=== PATIENT | female | born 1995 | race Caucasian/White ===

== ENCOUNTER 2018-12-16 06:27 | Emergency (ER) | payer SELFPAY ==
--- NOTE | 2018-12-16 06:52 | EDM.PDOC ---
ED HPI GENERAL MEDICAL PROBLEM - General Chief Complaint: Abdominal Pain Stated Complaint: STOMACH PAIN Time Seen by Provider: 12/16/18 06:48 Source of Information: Reports: Patient History Limitations: Reports: No Limitations - History of Present Illness INITIAL COMMENTS - FREE TEXT/NARRATIVE: 23-year-old female who reports yesterday morning developed a "stomach ache". The pain was just a general upper abdominal "pain" that she found hard to describe but was minor and she was reports that she was able to eat and drink. It continued constant throughout the day with no waxing or waning but and a low- grade level. At approximately 4 AM she awoke with severe pain in her upper abdomen that was associated with vomiting. She has had vomiting 7 since then. She has tried to take liquids but has vomiting following this. Some of her initial emesis was bilious but the latter has been after she's tried to drink liquids. She's had diarrhea 1. No blood in her stool. She reports the pain as a sharp pain. It does not radiate. He rates the pain as a 10/10. No fevers. But she has had chills. No dysuria. Last normal menstrual period was 2 weeks ago. She denies any episodes of pain similar to this in the past. There are no other associated signs or symptoms. There are no other modifying factors. Onset: Other (Yesterday morning but acute worsening at 4 AM today.) Duration: Getting Worse Location: Reports: Abdomen Quality: Reports: Sharp Severity: Severe Improves with: Reports: None Worsens with: Reports: Other (Palpation) Context: Reports: Other (As above) Associated Symptoms: Reports: Nausea/Vomiting Treatments [employer]AY [employer]IN [employer]IVER: Reports: Other (see below) (Nothing) abdominal Pain Score (Numeric/FACES): 10 - Related Data Allergies Allergy/AdvReac Type Severity Reaction Status Date / Time No Known Allergies Allergy Verified 12/16/18 06:45 Home Meds: Home Meds Omeprazole 40 mg PO ACBREAKFAST #30 cap.sr 12/16/18 [Rx] Promethazine [Phenergan] 25 mg PO Q6H PRN #12 tab 12/16/18 [Rx] Past Medical History HEENT History: Reports: Allergic Rhinitis - Past Surgical History Other Surgical History Comment: No previous surgeries. Social & Family History - Tobacco Use Smoking Status *Q: Former Smoker (Quit smoking one month ago) - Alcohol Use Alcohol Use History: Yes Alcohol Use Frequency: Rarely - Recreational Drug Use Recreational Drug Type: Reports: Marijuana/Hashish Recreational Drug Use Frequency: Rarely - Living Situation & Occupation Living situation: Reports: Single Occupation: Employed (As a field appraiser) ED ROS GENERAL - Review of Systems Review Of Systems: See Below Constitutional: Reports: Chills HEENT: Reports: No Symptoms Respiratory: Reports: Cough (Cough for about the past month. Nonproductive.) Cardiovascular: Reports: No Symptoms Endocrine: Reports: No Symptoms GI/Abdominal: Reports: Abdominal Pain, Diarrhea, Nausea, Vomiting : Reports: No Symptoms Musculoskeletal: Reports: No Symptoms Skin: Reports: No Symptoms Neurological: Reports: No Symptoms Hematologic/Lymphatic: Reports: No Symptoms Immunologic: Reports: No Symptoms ED EXAM, GI/ABD - Physical Exam Exam: See Below Exam Limited By: No Limitations General Appearance: Alert, WD/WN, Moderate Distress Eyes: Bilateral: Normal Appearance, EOMI Ears: Normal External Exam, Hearing Grossly Normal Nose: Normal Inspection, Normal Mucosa, No Blood Throat/Mouth: Normal Voice, No Airway Compromise, Other (Dry mucous membranes) Head: Atraumatic, Normocephalic Neck: Normal Inspection, Supple, Non-Tender, Full Range of Motion Respiratory/Chest: No Respiratory Distress, Lungs Clear, Normal Breath Sounds, No Accessory Muscle Use, Chest Non-Tender Cardiovascular: Normal Peripheral Pulses, Regular Rate, Rhythm, No Murmur GI/Abdominal Exam: Normal Bowel Sounds, Soft, No Mass, Tender (And upper abdomen , more on the right upper quadrant) Back Exam: Normal Inspection, Full Range of Motion. No: CVA Tenderness (R), CVA Tenderness (L) Extremities: Normal Inspection, Normal Range of Motion, Non-Tender, No Pedal Edema, Normal Capillary Refill Neurological: Alert, Oriented, CN II-XII Intact, Normal Cognition, No Motor/ Sensory Deficits Skin Exam: Warm, Dry, Intact, Normal Color, No Rash Course - Vital Signs Last Recorded V/S: Last Vital Signs Temp 36.0 C 12/16/18 08:44 Pulse 87 12/16/18 08:44 Resp 15 12/16/18 08:44 BP 110/77 12/16/18 08:44 Pulse Ox 100 12/16/18 08:44 - Orders/Labs/Meds Orders: Active Orders 24 hr Category Date Time Status Abdomen Comp [US] Stat Exams 12/16/18 08:28 Ordered Pantoprazole [ProTONIX IV] Med 12/16/18 09:39 Once 40 mg IVPUSH ONETIME ONE Sodium Chloride 0.9% [Normal Saline] 1,000 ml Med 12/16/18 08:45 Active IV ASDIRECTED Sodium Chloride 0.9% [Saline Flush] Med 12/16/18 07:00 Active 10 ml FLUSH ASDIRECTED PRN Peripheral IV Insertion Adult [OM.PC] Routine Oth 12/16/18 07:00 Ordered Medication Orders Sodium Chloride (Normal Saline) 1,000 mls @ 150 mls/hr IV ASDIRECTED FRANSISCA Last Admin: 12/16/18 08:56 Dose: 150 mls/hr Pantoprazole Sodium (Protonix Iv) 40 mg IVPUSH ONETIME ONE Stop: 12/16/18 09:40 Sodium Chloride (Saline Flush) 10 ml FLUSH ASDIRECTED PRN PRN Reason: Keep Vein Open Last Admin: 12/16/18 07:13 Dose: 10 ml Labs: Laboratory Tests 12/16/18 12/16/18 12/16/18 Range/Units 07:20 07:20 07:20 WBC 11.8 (4.5-12.0) X10-3/uL RBC 4.62 (3.23-5.20) x10(6)uL Hgb 13.7 (11.5-15.5) g/dL Hct 40.1 (30.0-51.3) % MCV 86.7 (80-96) fL MCH 29.5 (27.7-33.6) pg MCHC 34.1 (32.2-35.4) g/dL RDW 13.2 (11.5-15.5) % Plt Count 319 (125-369) X10(3)uL MPV 7.6 (7.4-10.4) fL Neut % (Auto) 75.6 (46-82) % Lymph % (Auto) 19.4 (13-37) % [place] % (Auto) 4.1 (4-12) % Eos % (Auto) 0 L (1.0-5.0) % Baso % (Auto) 1 (0-2) % Neut # (Auto) 8.9 H (1.6-8.3) # Lymph # (Auto) 2.3 (0.6-5.0) # Chester # (Auto) 0.5 (0.0-1.3) # Eos # (Auto) 0.0 (0.0-0.8) # Baso # (Auto) 0.1 (0.0-0.2) # Sodium 140 (135-145) mmol/L Potassium 3.7 (3.5-5.3) mmol/L Chloride 101 (100-110) mmol/L Carbon Dioxide 26 (21-32) mmol/L BUN 15 (7-18) mg/dL Creatinine 0.8 (0.55-1.02) mg/dL Est Cr Clr Drug Dosing 89.70 mL/min Estimated GFR (MDRD) > 60 (>60) BUN/Creatinine Ratio 18.8 (9-20) Glucose 128 H (80-116) mg/dL Calcium 9.7 (8.6-10.2) mg/dL Total Bilirubin 0.3 (0.1-1.3) mg/dL AST 16 (5-25) IU/L ALT 19 (12-36) U/L Alkaline Phosphatase 79 (56-112) IU/L C-Reactive Protein < 0.2 L (0.5-0.9) mg/dL Total Protein 9.0 H (6.0-8.0) g/dL Albumin 4.3 (3.5-5.2) g/dL Globulin 4.7 g/dL Albumin/Globulin Ratio 0.9 Amylase 87 (25-115) U/L Urine Color (YELLOW) Urine Appearance (CLEAR) Urine pH (5.0-6.5) Ur Specific [place] (1.010-1.025) Urine Protein (NEGATIVE) mg/dL Urine Glucose (UA) (NORMAL) mg/dL Urine Ketones (NEGATIVE) mg/dL Urine Occult Blood (NEGATIVE) Urine Nitrite (NEGATIVE) Urine Bilirubin (NEGATIVE) Urine Urobilinogen (NEGATIVE) mg/dL Ur Leukocyte Esterase (NEGATIVE) Urine RBC (0-5) Urine WBC (0-5) Ur Squamous Epith Cells (NS,R,O) Amorphous Sediment Urine Bacteria (NS) Urine HCG, Qual (NEGATIVE) 12/16/18 12/16/18 Range/Units 07:50 07:50 WBC (4.5-12.0) X10-3/uL RBC (3.23-5.20) x10(6)uL Hgb (11.5-15.5) g/dL Hct (30.0-51.3) % MCV (80-96) fL MCH (27.7-33.6) pg MCHC (32.2-35.4) g/dL RDW (11.5-15.5) % Plt Count (125-369) X10(3)uL MPV (7.4-10.4) fL Neut % (Auto) (46-82) % Lymph % (Auto) (13-37) % [place] % (Auto) (4-12) % Eos % (Auto) (1.0-5.0) % Baso % (Auto) (0-2) % Neut # (Auto) (1.6-8.3) # Lymph # (Auto) (0.6-5.0) # Chester # (Auto) (0.0-1.3) # Eos # (Auto) (0.0-0.8) # Baso # (Auto) (0.0-0.2) # Sodium (135-145) mmol/L Potassium (3.5-5.3) mmol/L Chloride (100-110) mmol/L Carbon Dioxide (21-32) mmol/L BUN (7-18) mg/dL Creatinine (0.55-1.02) mg/dL Est Cr Clr Drug Dosing mL/min Estimated GFR (MDRD) (>60) BUN/Creatinine Ratio (9-20) Glucose (80-116) mg/dL Calcium (8.6-10.2) mg/dL Total Bilirubin (0.1-1.3) mg/dL AST (5-25) IU/L ALT (12-36) U/L Alkaline Phosphatase (56-112) IU/L C-Reactive Protein (0.5-0.9) mg/dL Total Protein (6.0-8.0) g/dL Albumin (3.5-5.2) g/dL Globulin g/dL Albumin/Globulin Ratio Amylase (25-115) U/L Urine Color Yellow (YELLOW) Urine Appearance Slightly cloudy (CLEAR) Urine pH 9.0 H (5.0-6.5) Ur Specific [place] 1.015 (1.010-1.025) Urine Protein Negative (NEGATIVE) mg/dL Urine Glucose (UA) Normal (NORMAL) mg/dL Urine Ketones 15 H (NEGATIVE) mg/dL Urine Occult Blood Moderate H (NEGATIVE) Urine Nitrite Negative (NEGATIVE) Urine Bilirubin Negative (NEGATIVE) Urine Urobilinogen Normal (NEGATIVE) mg/dL Ur Leukocyte Esterase Small H (NEGATIVE) Urine RBC 0-5 (0-5) Urine WBC 0-5 (0-5) Ur Squamous Epith Cells Moderate H (NS,R,O) Amorphous Sediment Many Urine Bacteria Rare H (NS) Urine HCG, Qual Negative (NEGATIVE) Meds: Medications Generic Name Dose Route Start Last Admin Trade Name Freq PRN Reason Stop Dose Admin Sodium Chloride 1,000 mls @ 150 mls/hr 12/16/18 08:45 12/16/18 08:56 Normal Saline IV 150 mls/hr ASDIRECTED FRANSISCA Administration Pantoprazole Sodium 40 mg 12/16/18 09:39 Protonix Iv IVPUSH 12/16/18 09:40 ONETIME ONE Sodium Chloride 10 ml 12/16/18 07:00 12/16/18 07:13 Saline Flush FLUSH 10 ml ASDIRECTED PRN Administration Keep Vein Open Discontinued Medications Generic Name Dose Route Start Last Admin Trade Name Freq PRN Reason Stop Dose Admin Hydromorphone HCl 1 mg 12/16/18 07:01 12/16/18 07:12 Dilaudid IVPUSH 12/16/18 07:02 1 mg ONETIME ONE Administration Sodium Chloride 1,000 mls @ 999 mls/hr 12/16/18 07:01 12/16/18 07:13 Normal Saline IV 12/16/18 08:01 999 mls/hr .BOLUS ONE Administration Promethazine HCl 25 mg/ Sodium 51 mls @ 200 mls/hr 12/16/18 08:45 12/16/18 08 :56 Chloride IV 12/16/18 09:00 200 mls/hr ONETIME ONE Administration Ketorolac Tromethamine 30 mg 12/16/18 08:44 12/16/18 08:55 Toradol IVPUSH 12/16/18 08:45 30 mg ONETIME ONE Administration Ondansetron HCl 4 mg 12/16/18 07:01 12/16/18 07:12 Zofran IVPUSH 12/16/18 07:02 4 mg ONETIME ONE Administration - Radiology Interpretation Free Text/Narrative:: Abdominal ultrasound showed no acute abnormality. - Re-Assessments/Exams Free Text/Narrative Re-Assessment/Exam: 12/16/18 08:24: Patient is much improved at this time. Her abdominal pain is essentially gone. There is some mild upper quadrant abdominal pain with deep palpation. She has remained vitally stable. Her blood tests are reassuringly normal. Her urinalysis was clear. Her urine test was negative. I discussed the options with the patient and her mother. These options included being discharged now with follow-up with her primary doctor at [facility] in [place] or waiting here to get an abdominal ultrasound performed (the truck engine technician is not available until approximately 10 AM today). The patient would like to wait to get the ultrasound done today. Therefore, we will saline lock her IV and continue to keep the patient nothing by mouth and monitor her for now. 12/16/18 08:50: The patient had a recurrence of her upper quadrant abdominal pain with recurrent nausea and dry heaving. I ordered Toradol and Phenergan to be given for the patient. Awaiting abdominal ultrasound to be performed. 12/16/18 09:41: Abdominal ultrasound was normal. The patient is sleeping and resting comfortably now. No more nausea or vomiting. She does have some mild upper quadrant abdominal pain that seems to come and go. I discussed options with the patient at this time. One option would be to do a CT scan of her abdomen and pelvis to further evaluate her or she can also just go home with a trial of omeprazole and follow-up with her primary doctor. She states that she feels much improved now and would want to go home at this point. Departure - Departure Time of Disposition: 09:45 Disposition: Home, Self-Care 01 Condition: Good (Improved) Clinical Impression: Abdominal pain of unknown etiology, Dehydration Vomiting Qualifiers: Vomiting type: unspecified Vomiting Intractability: non-intractable Nausea presence: with nausea Qualified Code(s): R11.2 - Nausea with vomiting, unspecified - Discharge Information Prescriptions: Omeprazole 40 mg PO ACBREAKFAST #30 cap.sr Promethazine [Phenergan] 25 mg PO Q6H PRN #12 tab PRN Reason: Nausea/vomiting; abd cramping Instructions: Dehydration, Adult, [id number], Abdominal Pain, Adult, Easy-to- Read, Nausea and Vomiting, Adult, [id number] Referrals: Selena Flannery NP [Primary Care Provider] - Forms: ED Department Discharge Additional Instructions: Your blood tests were reassuringly normal. Your urine test was normal. The ultrasound of your abdomen showed no acute abnormality. I am unsure why you or having the abdominal pain and the nausea with vomiting. As we discussed, it could still be something related to her gallbladder but this is unlikely. It could also be gastritis or acid reflux. I am placing you on a trial of Prilosec therapy. You should rest. You should drink plenty of fluids. Other medication as prescribed (Phenergan 25 mg). Follow-up with your primary doctor by this next week. Back to the emergency department for unrelenting vomiting, worsening abdominal pain, fever or any other concerning sign or symptom. - My Orders Last 24 Hours: My Active Orders 12/16/18 07:00 Sodium Chloride 0.9% [Saline Flush] 10 ml FLUSH ASDIRECTED PRN Peripheral IV Insertion Adult [OM.PC] Routine 12/16/18 08:28 Abdomen Comp [US] Stat 12/16/18 08:45 Sodium Chloride 0.9% [Normal Saline] 1,000 ml IV ASDIRECTED 12/16/18 09:39 Pantoprazole [ProTONIX IV] 40 mg IVPUSH ONETIME ONE - Assessment/Plan Last 24 Hours: My Active Orders 12/16/18 07:00 Sodium Chloride 0.9% [Saline Flush] 10 ml FLUSH ASDIRECTED PRN Peripheral IV Insertion Adult [OM.PC] Routine 12/16/18 08:28 Abdomen Comp [US] Stat 12/16/18 08:45 Sodium Chloride 0.9% [Normal Saline] 1,000 ml IV ASDIRECTED 12/16/18 09:39 Pantoprazole [ProTONIX IV] 40 mg IVPUSH ONETIME ONE
[2018-12-16] MEDS ORDERED: Sodium Chloride 0.9% 10 ML Syringe FLUSH PRN (07:00)
[2018-12-16] MEDS ORDERED: HYDROmorphone 2 MG/ML SDV IVPUSH ONE (07:01)
[2018-12-16] MEDS ORDERED: Sodium Chloride 0.9% 1,000 ML IV ONE (07:01)
[2018-12-16] MEDS ORDERED: Ondansetron 4 MG/2 ML SDV IVPUSH ONE (07:01)
[2018-12-16] MEDS ORDERED: Ketorolac 30 MG/ML SDV IVPUSH ONE (08:44)
[2018-12-16] MEDS ORDERED: Sodium Chloride 0.9% 1,000 ML IV SCH (08:45)
[2018-12-16] MEDS ORDERED: Promethazine 25 MG in Sodium Chloride 0.9% 50 ML IV ONE (08:45)
[2018-12-16] MEDS ORDERED: Pantoprazole 40 MG Vial IVPUSH ONE (09:39)
--- NOTE | 2018-12-17 08:43 | US ---
INDICATION: Severe colicky upper quadrant abdominal pain. RIGHT UPPER QUADRANT/GALLBLADDER ULTRASOUND: Multiple ultrasonic images of the right upper quadrant were obtained. The pancreas appears normal with the tail not ideally visualized due to intestinal gas overlying it. The IVC was phasic. The gallbladder was normal in size, measuring a maximum of 6.1 cm with no calculi, sludge, wall thickening, pericholecystic fluid, or positive ultrasonic [place] sign. The liver was unremarkable. Common bile duct was normal in caliber at 3.3 mm. The right kidney appeared normal, measuring 11.5 x 5.7 x 4.4 cm. No mass lesions, organomegaly, or free fluid collections were identified in the right upper quadrant. IMPRESSION: Normal right upper quadrant/gallbladder ultrasound. MTDD
== END 2018-12-16 09:57 | disposition home or self-care (01) ==
LOC: FB.ED 06:27
DX: E86.0 Dehydration (principal); R11.2 Nausea with vomiting, unspecified; R10.11 Right upper quadrant pain; Z87.891 Personal history of nicotine dependence
CPT/HCPCS: 36415; 76700; 80053; 81001; 81025; 82150; 85025; 86140; 96361; 96374; 96375; 99284; C9113; J1170; J1885; J2405; J2550; J7030; J7050

== ENCOUNTER 2020-01-02 06:36 | Day surgery (SDC) | payer SELFPAY ==
[2020-01-02] MEDS ORDERED: Ketorolac 30 MG/ML SDV IVPUSH ONE (06:37)
[2020-01-02] MEDS ORDERED: Ondansetron 4 MG/2 ML SDV IVPUSH ONE (06:37)
[2020-01-02] MEDS ORDERED: Dexamethasone 4 MG/ML 5 ML MDV IVPUSH ONE (06:37)
[2020-01-02] MEDS ORDERED: Glycopyrrolate 0.2 MG/ML 5 ML MDV IV ONE (06:37)
[2020-01-02] MEDS ORDERED: Propofol 200 MG/20 ML SDV IV ONE (06:37)
[2020-01-02] MEDS ORDERED: Midazolam 1 MG/ML 2 ML SDV IV ONE (06:37)
[2020-01-02] MEDS ORDERED: Lidocaine 2% 5 ML SDV IV ONE (06:37)
[2020-01-02] MEDS ORDERED: fentaNYL 100 MCG/2 ML SDV IV ONE (06:37)
[2020-01-02] MEDS ORDERED: Lactated Ringers 1,000 ML IV ONE (06:37)
[2020-01-02] MEDS ORDERED: Lactated Ringers 1,000 ML IV SCH ×2 (07:45→08:45)
[2020-01-02] MEDS ORDERED: ceFAZolin 2 GM in Premix Bag 1 BAG IV ONE (08:00)
[2020-01-02] MEDS ORDERED: Lidocaine 1% with EPINEPHrine 1:100,000 20 ML MDV INJECT ONE (08:40)
[2020-01-02] MEDS ORDERED: Bupivacaine 0.5% 30 ML SDV INJECT ONE (08:41)
[2020-01-02] MEDS ORDERED: Sodium Chloride 0.9% 10 ML Syringe FLUSH PRN (08:45)
[2020-01-02] MEDS ORDERED: Acetaminophen/HYDROcodone 325-5 MG Tab PO PRN (08:54)
--- NOTE | 2020-01-02 08:55 | PCM.OPNOTE ---
- General Post-Op/Procedure Note Date of Surgery/Procedure: 01/02/20 Operative Procedure(s): umbilical hernia repair Findings: 1.5 cm defect Pre Op Diagnosis: umbilical hernia without obstruction or gangrene Post-Op Diagnosis: Same Anesthesia Technique: General LMA, Local (6 ml 1 % lido with epi/0.5% buvipicaine) Primary Surgeon: Jace Wilson Anesthesia Provider: Akbar Nunn EBL in mLs: 1 Complications: None Condition: Good Free Text/Narrative:: see dictation
--- NOTE | 2020-01-02 15:35 | OR ---
DATE OF OPERATION: 01/02/2020 SURGEON: Jace Wilson MD PROCEDURE PERFORMED: Umbilical hernia repair. PREOPERATIVE DIAGNOSIS: Umbilical hernia without obstruction or gangrene. POSTOPERATIVE DIAGNOSIS: Umbilical hernia without obstruction or gangrene. INDICATIONS FOR PROCEDURE: This is a 24-year-old white female who recently delivered a term infant. She noted a small bump in the area of her umbilicus, which was slightly tender. No evidence of incarceration. She was offered and accepted repair. INTRAOPERATIVE FINDINGS: As follows: A small 1.5 cm defect was encountered. 6 mL of 1:1 mixture of 1% lidocaine with epinephrine, 0.5% bupivacaine was used to repair the defect. DESCRIPTION OF PROCEDURE: After an excellent LMA anesthetic was administered, the patient was prepped and draped in usual sterile manner. 6 mL of our local mixture was used to create a field block around the umbilicus. A curvilinear incision was made at the base of the patient's umbilicus. Combination of blunt and sharp dissection was carried out, and the hernia sac was dissected free from the surrounding structures and taken down to the level of the fascia. The sac itself was entered. There were no intraabdominal contents noted. There was a firm tip at the distalmost portion, which appeared to be some indurated peritoneum. The excess sac was excised. The fascial edges were freed up. The defect was closed with a [id number] repair using interrupted 0 Ethibond and several additional Ethibond were used to tack the superior edge to the inferior edge. The umbilicus was then tacked to the anterior abdominal wall with a [id number] 0 Vicryl and a running subcu 4-0 Vicryl was used to close the skin. Steri-Strips were applied. The patient was taken to recovery room in good condition. /[id number] /MODL
== END 2020-01-02 10:27 | disposition home or self-care (01) ==
LOC: FB.SDS 06:36
PROVIDERS: ATTEND Surgery
DX: K42.9 Umbilical hernia without obstruction or gangrene (principal); Z01.812 Encounter for preprocedural laboratory examination; Z20.828 Contact with and (suspected) exposure to other viral communicable diseases
CPT/HCPCS: 00750; 49585; 81025; 87635; J0690; J1100; J1885; J2001; J2250; J2405; J2704; J3010; J3490; J7120; U0002

== ENCOUNTER 2021-12-12 13:36 | Emergency (ER) | payer OTHER ==
[2021-12-12] MEDS ORDERED: Lidocaine 1% 5 ML VIAL INJECT ONE (13:56)
[2021-12-12] MEDS ORDERED: Bacitracin Oint 1 GM U/D Packet TOP ONE (14:14)
== END 2021-12-12 14:25 | disposition home or self-care (01) ==
LOC: FB.ED 13:36
DX: S51.811A Laceration without foreign body of right forearm, initial encounter (principal); W26.0XXA Contact with knife, initial encounter
CPT/HCPCS: 12001; 99282

== ENCOUNTER 2022-01-18 14:30 | Emergency (ER) | payer OTHER, MEDICAID | END 2022-01-18 17:10 | disposition home or self-care (01) | LOC: FB.ED 14:30 | DX: S70.12XA Contusion of left thigh, initial encounter (principal); Z79.899 Other long term (current) drug therapy; V49.40XA Driver injured in collision with unspecified motor vehicles in traffic accident, initial encounter; Y92.410 Unspecified street and highway as the place of occurrence of the external cause | CPT/HCPCS: 73552-LT; 99284 ==

== ENCOUNTER 2023-05-27 03:51 | Emergency (ER) | payer MEDICAID ==
[2023-05-27] MEDS ORDERED: Sodium Chloride 0.9% 10 ML Syringe FLUSH PRN (04:11)
[2023-05-27] MEDS: Ondansetron 4 MG/2 ML SDV IVPUSH ONE ×2 (04:30→05:56)
[2023-05-27] MEDS: Sodium Chloride 0.9% 1,000 ML IV SCH ×2 (04:30→05:11)
[2023-05-27 04:35] LABS: BASOPHILS ABSOLUTE AUTO 0.1 x10-3/uL (0.0-0.1); BASOPHILS PERCENT AUTO 0.6 % (0.2-1.5); EOSINOPHILS PERCENT AUTO 0.6 % (0.6-8.1); HEMATOCRIT 36.9 % (34.2-48.2); HEMOGLOBIN 12.6 g/dL (11.4-15.5); LYMPHOCYTES ABSOLUTE AUTO 1.7 x10-3/uL (1.0-4.4); LYMPHOCYTES PERCENT AUTO 20.5 % (18.4-52.1); MEAN CORPUSCULAR HGB CONC 34.2 g/dL (31.9-34.8); MEAN CORPUSCULAR VOLUME 87.7 fL (76.7-100.5); MEAN PLATELET VOLUME 6.9 fL (7.1-12.4); MONOCYTES ABSOLUTE AUTO 0.6 x10-3/uL (0.3-1.0); MONOCYTES PERCENT AUTO 7.1 % (4.4-15.7); NEUTROPHILS ABSOLUTE AUTO 5.9 x10-3/uL (1.5-6.3); NEUTROPHILS PERCENT AUTO 71.2 % (30.8-76.2); PLATELET COUNT,PLT 275 x10(3)uL (151-488); RED BLOOD CELL COUNT 4.21 x10(6)uL (3.60-5.20); RED CELL DISTRIBUTION WIDTH 13.1 % (12.3-16.5); WHITE BLOOD CELL COUNT,WBC 8.3 x10-3/uL (3.0-10.3)
[2023-05-27 04:36] LABS: BLOOD UREA NITROGEN,BUN 9 mg/dL (7-18); CALCIUM 8.9 mg/dL (8.6-10.2); CARBON DIOXIDE,CO2 24 mmol/L (21-32); CHLORIDE,CL 100 mmol/L (100-110); CREATININE 0.6 mg/dL (0.55-1.02); ESTIMATED GFR 125 mL/min (>60); GLUCOSE RANDOM 99 mg/dL (80-116); POTASSIUM,K 3.5 mmol/L (3.5-5.3); SODIUM,NA 136 mmol/L (135-145)
[2023-05-27 04:40] LABS: BILIRUBIN,URINE SMALL (NEGATIVE); GLUCOSE,URINE NORMAL (NORMAL); KETONES,URINE 50 mg/dL (NEGATIVE); LEUKOCYTE ESTERASE,URINE NEGATIVE (NEGATIVE); NITRITE,URINE NEGATIVE (NEGATIVE); OCCULT BLOOD,URINE MODERATE (NEGATIVE); PROTEIN,URINE 30 mg/dL (NEGATIVE); UROBILINOGEN,URINE 4 mg/dL (NEGATIVE)
[2023-05-27 04:42] LABS: A/G RATIO 0.7; ALANINE AMINOTRANSFERASE,ALT 19 U/L (12-36); ALBUMIN 3.3 g/dL (3.5-5.2); ALKALINE PHOSPHATASE 56 IU/L (56-112); ASPARTATE AMNIOTRANSFERASE,AST 15 IU/L (5-25); BILIRUBIN TOTAL 0.7 mg/dL (0.1-1.3); PROTEIN TOTAL,TP 7.8 g/dL (6.0-8.0)
[2023-05-27 04:44] LABS: APPEARANCE,URINE SLIGHTLY CLOUDY (CLEAR); BACTERIA,URINE FEW (NS); COARSE GRANULAR CASTS,URINE OCCASIONAL (NS); COLOR,URINE YELLOW (YELLOW); SQUAMOUS EPITHELIAL CELLS,UR FEW (NS,R,O); WBC,URINE 0-5 (0-5)
[2023-05-27 04:45] LABS: MUCUS,URINE FEW (NS)
[2023-05-27] MEDS: Metoclopramide 10 MG/2 ML SDV IVPUSH ONE (05:15)
[2023-05-27] MEDS: Pantoprazole 40 MG Vial IVPUSH ONE (05:15)
[2023-05-27] MEDS: hydrOXYzine HCl 50 MG/ML SDV IM ONE (06:20)
[2023-05-27] MEDS: methylPREDNISolone Sodium Succinate 125 MG/2 ML SDV IVPUSH ONE (06:20)
[2023-05-27] MEDS: Prochlorperazine 10 MG/2 ML SDV IVPUSH ONE (06:42)
[2023-05-27] MEDS: fentaNYL 100 MCG/2 ML SDV IVPUSH ONE (06:46)
[2023-05-29 03:33] LABS: CREATININE, URINE - PER VOLUME 172 mg/dL; HOURS COLLECTED Random hr; TOTAL PROTEIN, URN-PER VOLUME 38 mg/dL; TOTAL VOLUME Random mL; UR TOTAL PROT/CREATININE RATIO 221 mg/g (10-107)
== END 2023-05-27 09:05 | disposition home or self-care (01) ==
LOC: FB.ED 03:51
DX: O99.612 Diseases of the digestive system complicating pregnancy, second trimester (principal); O21.9 Vomiting of pregnancy, unspecified; O13.2 Gestational [pregnancy-induced] hypertension without significant proteinuria, second trimester; K21.9 Gastro-esophageal reflux disease without esophagitis; Z3A.00 Weeks of gestation of pregnancy not specified
CPT/HCPCS: 36415; 80053; 81001; 83690; 84156; 84550; 85025; 96361; 96372; 96374; 96375; 96376; 99284; C9113; J0780; J2405; J2765; J2930; J3010; J3410; J7030

== ENCOUNTER 2023-05-29 14:12 | Observation (INO) | payer MEDICAID ==
[2023-05-29] MEDS ORDERED: Prochlorperazine 10 MG in Sodium Chloride 0.9% 50 ML IV PRN (15:52)
[2023-05-29] MEDS: Sodium Chloride 0.9% 10 ML Syringe FLUSH PRN (16:13)
[2023-05-29] MEDS: Pantoprazole 40 MG Vial IVPUSH SCH (16:13)
[2023-05-29] MEDS: NS + KCl 20mEq/L 1,000 ML IV SCH (16:15)
[2023-05-29] MEDS: Prochlorperazine 10 MG/2 ML SDV IVPUSH PRN (16:17)
[2023-05-29] MEDS: Acetaminophen/HYDROcodone 325-5 MG Tab PO PRN (16:17)
[2023-05-29] MEDS: Sucralfate 1 GM Tab PO SCH (18:14)
[2023-05-29] MEDS: Potassium Chloride 20 MEQ Tab.ER PO SCH (20:45)
[2023-05-30] MEDS ORDERED: Alum Hydroxide/Mag Hydroxide 15 ML, Lidocaine 2% 15 ML PO PRN (03:19)
[2023-05-30] MEDS: Ondansetron 4 MG/2 ML SDV IVPUSH PRN (03:32)
[2023-05-30] MEDS: Alum Hydroxide/Mag Hydroxide 15 ML, Lidocaine 2% 15 ML PO PRN (04:07)
[2023-05-30 06:54] LABS: BASOPHILS PERCENT AUTO 0.1 % (0.2-1.5); HEMATOCRIT 31.7 % (34.2-48.2); LYMPHOCYTES ABSOLUTE AUTO 1.6 x10-3/uL (1.0-4.4); LYMPHOCYTES PERCENT AUTO 19.2 % (18.4-52.1); MEAN CORPUSCULAR HEMOGLOBIN 30.4 pg (23.9-33.9); MEAN CORPUSCULAR HGB CONC 34.7 g/dL (31.9-34.8); MEAN CORPUSCULAR VOLUME 87.8 fL (76.7-100.5); MEAN PLATELET VOLUME 6.8 fL (7.1-12.4); MONOCYTES ABSOLUTE AUTO 0.6 x10-3/uL (0.3-1.0); MONOCYTES PERCENT AUTO 7.5 % (4.4-15.7); NEUTROPHILS PERCENT AUTO 73.2 % (30.8-76.2); PLATELET COUNT,PLT 234 x10(3)uL (151-488); RED BLOOD CELL COUNT 3.61 x10(6)uL (3.60-5.20); RED CELL DISTRIBUTION WIDTH 13.3 % (12.3-16.5); WHITE BLOOD CELL COUNT,WBC 8.2 x10-3/uL (3.0-10.3)
[2023-05-30 07:03] LABS: BLOOD UREA NITROGEN,BUN 3 mg/dL (7-18); BUN/CREATININE RATIO 7.5 (9-20); CALCIUM 7.4 mg/dL (8.6-10.2); CARBON DIOXIDE,CO2 26 mmol/L (21-32); CHLORIDE,CL 100 mmol/L (100-110); CREATININE 0.4 mg/dL (0.55-1.02); EST CRCL DRUG DOSING (CG) 180.81 mL/min; ESTIMATED GFR 138 mL/min (>60); GLUCOSE RANDOM 94 mg/dL (80-116); POTASSIUM,K 2.9 mmol/L (3.5-5.3); SODIUM,NA 135 mmol/L (135-145)
[2023-05-30] MEDS: Prenatal Multivitamin with Calcium/Folic Acid/Fe Fumarate Cap PO SCH (09:42)
[2023-05-30] MEDS: Potassium Chloride 20 MEQ Tab.ER PO SCH (09:42)
[2023-05-31] MEDS ORDERED: Pantoprazole 40 MG Tab.CR PO SCH (07:30)
== END 2023-05-30 13:15 | disposition home or self-care (01) ==
LOC: FB.MS 14:12
PROVIDERS: ADMIT Family Medicine; ATTEND Family Medicine
DX: O21.0 Mild hyperemesis gravidarum (principal); K29.70 Gastritis, unspecified, without bleeding; R12 Heartburn; E87.6 Hypokalemia; Z79.899 Other long term (current) drug therapy; Z34.92 Encounter for supervision of normal pregnancy, unspecified, second trimester
CPT/HCPCS: 36415; 80048; 82272; 85025; 96365; 96366; 96375; 96376; 99222; 99238; A9270-GY; C9113; G0378; G0379; J0780; J2405; J3480; J3490

== ENCOUNTER 2023-08-12 13:53 | Emergency (ER) | payer MEDICAID ==
[2023-08-12] MEDS: Sodium Chloride 0.9% 10 ML Syringe FLUSH PRN (14:15)
[2023-08-12 14:25] LABS: BASOPHILS PERCENT AUTO 0.4 % (0.2-1.5); EOSINOPHILS PERCENT AUTO 0.1 % (0.6-8.1); HEMATOCRIT 35.8 % (34.2-48.2); HEMOGLOBIN 11.9 g/dL (11.4-15.5); LYMPHOCYTES ABSOLUTE AUTO 1.5 x10-3/uL (1.0-4.4); MEAN CORPUSCULAR HGB CONC 33.3 g/dL (31.9-34.8); MEAN CORPUSCULAR VOLUME 84.2 fL (76.7-100.5); MEAN PLATELET VOLUME 7.6 fL (7.1-12.4); MONOCYTES ABSOLUTE AUTO 0.3 x10-3/uL (0.3-1.0); MONOCYTES PERCENT AUTO 3.6 % (4.4-15.7); NEUTROPHILS ABSOLUTE AUTO 5.6 x10-3/uL (1.5-6.3); NEUTROPHILS PERCENT AUTO 75.9 % (30.8-76.2); PLATELET COUNT,PLT 239 x10(3)uL (151-488); RED BLOOD CELL COUNT 4.25 x10(6)uL (3.60-5.20); RED CELL DISTRIBUTION WIDTH 14.7 % (12.3-16.5); WHITE BLOOD CELL COUNT,WBC 7.3 x10-3/uL (3.0-10.3)
[2023-08-12] MEDS: Sodium Chloride 0.9% 1,000 ML IV SCH (14:25)
[2023-08-12] MEDS: Ondansetron 4 MG/2 ML SDV IVPUSH ONE (14:25)
[2023-08-12 14:28] LABS: BLOOD UREA NITROGEN,BUN 5 mg/dL (7-18); CARBON DIOXIDE,CO2 22 mmol/L (21-32); CHLORIDE,CL 102 mmol/L (100-110); CREATININE 0.5 mg/dL (0.55-1.02); ESTIMATED GFR 130 mL/min (>60); GLUCOSE RANDOM 99 mg/dL (80-116); POTASSIUM,K 3.8 mmol/L (3.5-5.3); SODIUM,NA 137 mmol/L (135-145)
[2023-08-12 14:35] LABS: A/G RATIO 0.6; ALANINE AMINOTRANSFERASE,ALT 22 U/L (12-36); ALBUMIN 2.8 g/dL (3.5-5.2); ALKALINE PHOSPHATASE 106 IU/L (56-112); ASPARTATE AMNIOTRANSFERASE,AST 27 IU/L (5-25); BILIRUBIN TOTAL 0.5 mg/dL (0.1-1.3); PROTEIN TOTAL,TP 7.7 g/dL (6.0-8.0)
[2023-08-12 14:37] LABS: EST CRCL DRUG DOSING (CG) 137.33 mL/min
[2023-08-12 15:20] LABS: BILIRUBIN,URINE SMALL (NEGATIVE); GLUCOSE,URINE NORMAL (NORMAL); KETONES,URINE 150 mg/dL (NEGATIVE); LEUKOCYTE ESTERASE,URINE SMALL (NEGATIVE); NITRITE,URINE NEGATIVE (NEGATIVE); OCCULT BLOOD,URINE MODERATE (NEGATIVE); PROTEIN,URINE 30 mg/dL (NEGATIVE); UROBILINOGEN,URINE 1 mg/dL (NEGATIVE)
[2023-08-12 15:21] LABS: AMPHETAMINES SCREEN, URINE NEGATIVE (NEGATIVE); BARBITURATE SCREEN,URINE NEGATIVE (NEGATIVE); BENZODIAZEPINES SCREEN,URINE NEGATIVE (NEGATIVE); BUPRENORPHINE SCREEN,URINE NEGATIVE (NEGATIVE); METHADONE SCREEN, URINE NEGATIVE (NEGATIVE); METHAMPHETAMINE SCREEN, URINE NEGATIVE (NEGATIVE); OXYCODONE SCREEN,URINE NEGATIVE (NEGATIVE); THC SCREEN,URINE POSITIVE (NEGATIVE)
[2023-08-12 15:22] LABS: APPEARANCE,URINE SLIGHTLY CLOUDY (CLEAR); BACTERIA,URINE MODERATE (NS); COLOR,URINE YELLOW (YELLOW); MUCUS,URINE MODERATE (NS); RBC,URINE 0-5 (0-5); SQUAMOUS EPITHELIAL CELLS,UR MANY (NS,R,O); WBC,URINE 0-5 (0-5)
[2023-08-12] MEDS: hydrOXYzine HCl 50 MG/ML SDV IM ONE (15:27)
[2023-08-12] MEDS: Pantoprazole 40 MG Vial IVPUSH ONE (15:28)
== END 2023-08-12 17:00 | disposition other institution (70) ==
LOC: FB.ED 13:53
DX: O99.891 Other specified diseases and conditions complicating pregnancy (principal); R10.33 Periumbilical pain; K21.9 Gastro-esophageal reflux disease without esophagitis; Z3A.34 34 weeks gestation of pregnancy; Z79.899 Other long term (current) drug therapy
CPT/HCPCS: 80053; 80307; 81001; 85025; 96361; 96372; 96374; 96375; 99283; 99284-25; C9113; J2405; J3410; J3490; J7030

== ENCOUNTER 2025-03-18 17:44 | Emergency (ER) | payer MEDICAID ==
[2025-03-18] MEDS ORDERED: Sodium Chloride 0.9% 10 ML Syringe FLUSH PRN (17:49)
[2025-03-18] MEDS: Ondansetron 4 MG/2 ML SDV IVPUSH ONE (18:19)
[2025-03-18 18:22] LABS: EOSINOPHILS ABSOLUTE AUTO 0.0 x10-3/uL (0.0-0.8); EOSINOPHILS PERCENT AUTO 0.2 % (0.6-8.1); MONOCYTES ABSOLUTE AUTO 0.4 x10-3/uL (0.3-1.0); NEUTROPHILS ABSOLUTE AUTO 7.2 x10-3/uL (1.5-6.3)
[2025-03-18 18:23] LABS: BLOOD UREA NITROGEN,BUN 5 mg/dL (7-18); CARBON DIOXIDE,CO2 25 mmol/L (21-32); CHLORIDE,CL 101 mmol/L (100-110); CREATININE 0.5 mg/dL (0.55-1.02); ESTIMATED GFR 129 mL/min (>60); GLUCOSE RANDOM 110 mg/dL (80-116); POTASSIUM,K 3.7 mmol/L (3.5-5.3); SODIUM,NA 139 mmol/L (135-145)
[2025-03-18 18:24] LABS: BASOPHILS ABSOLUTE AUTO 0.1 x10-3/uL (0.0-0.1); BASOPHILS PERCENT AUTO 0.6 % (0.2-1.5); LYMPHOCYTES ABSOLUTE AUTO 1.5 x10-3/uL (1.0-4.4); LYMPHOCYTES PERCENT AUTO 16.6 % (18.4-52.1); MEAN PLATELET VOLUME 7.2 fL (7.1-12.4); MONOCYTES PERCENT AUTO 4.3 % (4.4-15.7); NEUTROPHILS PERCENT AUTO 78.3 % (30.8-76.2); PLATELET COUNT,PLT 284 x10(3)uL (151-488); RED BLOOD CELL COUNT 4.55 x10(6)uL (3.60-5.20); RED CELL DISTRIBUTION WIDTH 13.8 % (12.3-16.5); WHITE BLOOD CELL COUNT,WBC 9.2 x10-3/uL (3.0-10.3)
[2025-03-18 18:29] LABS: A/G RATIO 0.8; ALANINE AMINOTRANSFERASE,ALT 22 U/L (12-36); ASPARTATE AMNIOTRANSFERASE,AST 22 IU/L (5-25); BILIRUBIN TOTAL 0.4 mg/dL (0.1-1.3); PROTEIN TOTAL,TP 8.4 g/dL (6.0-8.0)
[2025-03-18] MEDS: Prochlorperazine 10 MG/2 ML SDV IVPUSH ONE (18:45)
[2025-03-18] MEDS: LORazepam 2 MG/ML SDV IVPUSH ONE (19:32)
[2025-03-18] MEDS: Ketorolac 30 MG/ML SDV IVPUSH ONE (19:57)
[2025-03-18 21:50] LABS: GLUCOSE,URINE NORMAL (NORMAL); OCCULT BLOOD,URINE MODERATE (NEGATIVE)
[2025-03-18 21:51] LABS: APPEARANCE,URINE SLIGHTLY CLOUDY (CLEAR)
[2025-03-18 21:52] LABS: SQUAMOUS EPITHELIAL CELLS,UR FEW (NS,R,O)
== END 2025-03-18 22:35 | disposition home or self-care (01) ==
LOC: FB.ED 17:44
DX: O21.9 Vomiting of pregnancy, unspecified (principal); Z3A.37 37 weeks gestation of pregnancy; E86.0 Dehydration; Z79.899 Other long term (current) drug therapy; Z87.891 Personal history of nicotine dependence
CPT/HCPCS: 36415; 80053; 81001; 83690; 85025; 96361; 96374; 96375; 99284; J0780; J2060; J2405; J7030